=== PATIENT | female | born 1990 | race African-American/Black ===

== ENCOUNTER 2021-01-05 17:41 | Emergency (ER) | payer OTHER ==
[~2021-01-05] VITALS: Ht 175.3 cm; Wt 192.0 kg
[2021-01-05 18:59] LABS: BASO % 0.7 % (0.0-1.0); EOS # 0.1 10^3/uL (0.0-0.5); EOS % 1.1 % (0.0-3.0); HEMATOCRIT 36.8 % (36.0-47.0); LYMPH # 2.2 10^3/uL (1.5-5.0); LYMPH % 47.2 % (24.0-44.0); MEAN CORPUSCULAR HGB CONC 32.6 g/dl (32.0-36.5); MEAN CORPUSCULAR VOLUME 82.9 fl (80.0-96.0); MONO # 0.4 10^3/uL (0.0-0.8); MONO % 8.9 % (0.0-5.0); NEUTROPHILS # 1.9 10^3/uL (1.5-8.5); NEUTROPHILS % 41.7 % (36.0-66.0); PLATELET COUNT, AUTOMATED 281 10^3/uL (150-450); RED BLOOD COUNT 4.44 10^6/uL (4.00-5.40); WHITE BLOOD COUNT 4.6 10^3/uL (4.0-10.0)
[2021-01-05] MEDS ORDERED: DICYCLOMINE 10 MG CAP PO ONE (19:15)
[2021-01-05] MEDS ORDERED: ONDANSETRON 4MG/2ML VIAL IV ONE (19:15)
[2021-01-05] MEDS ORDERED: ISOVUE-370 76% 100ML VIAL As Ordered ONE (19:25)
[2021-01-05 19:27] LABS: ALBUMIN 3.8 GM/DL (3.2-5.2); ALT/SGPT 20 U/L (12-78); BILIRUBIN,DIRECT < 0.1 MG/DL (0.0-0.2); BILIRUBIN,TOTAL 0.1 MG/DL (0.2-1.0); LIPASE 94 U/L (73-393); TOTAL PROTEIN 8.1 GM/DL (6.4-8.2)
--- NOTE | 2021-01-05 20:37 | REPVR ---
PROCEDURE INFORMATION: Exam: CT Abdomen And Pelvis With Contrast Exam date and time: 01/05/2021 7:53 PM Age: 30 years old Clinical indication: Abdominal pain; Generalized; Additional info: Recent sbo, abd pain at suture site constant TECHNIQUE: Imaging protocol: Computed tomography of the abdomen and pelvis with contrast. Radiation optimization: All CT scans at this facility use at least one of these dose optimization techniques: automated exposure control; mA and/or kV adjustment per patient size (includes targeted exams where dose is matched to clinical indication); or iterative reconstruction. Contrast material: ISOVUE 370; Contrast volume: 100 ml; Contrast route: INTRAVENOUS (IV); COMPARISON: No relevant prior studies available. FINDINGS: Liver: Normal. No mass. Gallbladder and bile ducts: Normal. No calcified stones. No ductal dilation. Pancreas: Normal. No ductal dilation. Spleen: Normal. No splenomegaly. Adrenal glands: Normal. No mass. Kidneys and ureters: Normal. No hydronephrosis. Stomach and bowel: Postoperative changes are noted in the mid small bowel. The small bowel suture line appears intact. No bowel obstruction. Colon is unremarkable. Appendix: No evidence of appendicitis. Intraperitoneal space: No pneumoperitoneum. Vasculature: Unremarkable. No abdominal aortic aneurysm. Lymph nodes: Unremarkable. No enlarged lymph nodes. Urinary bladder: Unremarkable as visualized. Reproductive: 3.1 cm cyst in the left ovary. Multiple cysts in the right ovary which appears mildly enlarged. Possible small left hydrosalpinx. No abscess or fluid collections. Bones/joints: Unremarkable. No acute fracture. Soft tissues: Anterior abdominal wall suture site is unremarkable. IMPRESSION: 1. No bowel obstruction or inflammatory process in the GI tract. 2. Small cysts in the ovaries. Possible small left hydrosalpinx. Consider follow-up pelvic ultrasound. Electronically signed by: Garth Summers On 01/05/2021 20:37:13 PM
[2021-01-05] MEDS ORDERED: KETOROLAC 30 MG/ML 1ML VIAL IV ONE (21:30)
[2021-01-05 21:41] VITALS: BP 131/69
--- NOTE | 2021-01-06 11:49 | ED PDOC ---
Post-Departure Follow-Up ft drum fp and ft um ob faxed formal report of ct abd/p for fu Jacky Stark MD Jan 06, 2021 11:49
== END 2021-01-05 21:42 | disposition home or self-care (01) ==
LOC: M ED 17:41
DX: R10.84 Generalized abdominal pain (principal); R11.0 Nausea
CPT/HCPCS: 74177; 80047; 80076; 81001; 83690; 84702; 85025; 96374; 96375; 99284; J1885; J2405; Q9967

== ENCOUNTER → 2021-02-25 | Outpatient (CLI) | payer OTHER ==
[~2021-02-25] MED LIST: GLUCAGON INJ 1MG VIAL As Ordered ONE; ISOVUE-370 76% 100ML VIAL As Ordered ONE; VoLumen 0.1% SUSPENSION 450ML BOTTLE As Ordered ONE
--- NOTE | 2021-02-26 05:31 | REP ---
INDICATION: EPIGASTRIC PAIN COMPARISON: 01/05/2021 TECHNIQUE: Axial contrast-enhanced images from the lung bases to the pubic symphysis with images obtained in arterial and portal venous phases of enhancement. Coronal and sagittal reformations and MIP images were obtained. This CT examination was performed using the following dose reduction techniques: Automated exposure control, adjustment of mA and/or kv according to the patient's size, and use of iterative reconstruction technique. FINDINGS: Evaluation of the enteric system is somewhat limited due to significant residual fecal stasis as well as lack of low-density oral contrast material (as per protocol). There is evidence for prior anastomosis involving the small bowel in the right mid abdomen. There is no evidence for bowel obstruction or acute inflammatory process. Scattered sigmoid diverticula are identified. No obvious small bowel or colonic wall thickening, inflammatory stranding, areas of stenosis/stricture or obvious abnormality are otherwise noted. Normal terminal ileum, cecum and appendix identified in the right lower quadrant. Liver, spleen, pancreas, gallbladder, bilateral adrenal glands and kidneys are normal. Pelvis demonstrates normal bladder and age-appropriate uterus/adnexa. No ascites. No free air. No adenopathy. Abdominal aorta and vasculature are normal. Lung bases are clear. IMPRESSION: 1. Limited evaluation of the enteric system due to fecal stasis, lack of low-density oral contrast material and poor preparation. No obvious enteric abnormality noted. Prior small bowel anastomosis noted. 2. No acute abdominopelvic pathology appreciated. <Electronically signed by Avinash Woo > 02/26/21 [id number]
== END ==
LOC: M RAD 11:05
PROVIDERS: ATTEND Preventive Medicine Undersea and Hyperbaric Medicine
DX: R10.13 Epigastric pain (principal)
CPT/HCPCS: 74177; J1610; Q9967

== ENCOUNTER 2021-03-18 07:26 | Emergency (ER) | payer OTHER ==
[~2021-03-18] VITALS: Ht 175.3 cm; Wt 98.9 kg
[2021-03-18] MEDS ORDERED: MIRA3350 PO (07:32)
[2021-03-18] MEDS ORDERED: MAGN1.743 PO (07:32)
[2021-03-18] MEDS ORDERED: DOCU100C16 PO (07:32)
[2021-03-18] MEDS ORDERED: ONDA4TAB6 PO (07:32)
[2021-03-18] MEDS: methylPREDNISolone 125MG 2ML VIAL IV ONE (07:55)
[2021-03-18] MEDS: NS 1,000 ML IV ONE (07:55)
[2021-03-18] MEDS: diphenhydrAMINE 50MG/ML VIAL (J1200) IV ONE (07:55)
[2021-03-18] MEDS: FAMOTIDINE INJ 20MG/2ML VIAL (S0028 PER 1) IVP ONE (08:13)
[2021-03-18 08:24] LABS: BASO % 0.9 % (0.0-1.0); EOS # 0.1 10^3/uL (0.0-0.5); EOS % 1.5 % (0.0-3.0); HEMATOCRIT 35.9 % (36.0-47.0); HEMOGLOBIN 11.8 g/dl (12.0-15.5); LYMPH # 1.8 10^3/uL (1.5-5.0); LYMPH % 39.3 % (24.0-44.0); MEAN CORPUSCULAR HEMOGLOBIN 26.5 pg (27.0-33.0); MEAN CORPUSCULAR HGB CONC 32.9 g/dl (32.0-36.5); MEAN CORPUSCULAR VOLUME 80.7 fl (80.0-96.0); MONO # 0.4 10^3/uL (0.0-0.8); MONO % 9.7 % (2.0-8.0); NEUTROPHILS # 2.2 10^3/uL (1.5-8.5); NEUTROPHILS % 48.4 % (36.0-66.0); PLATELET COUNT, AUTOMATED 309 10^3/uL (150-450); RED BLOOD COUNT 4.45 10^6/uL (4.00-5.40); WHITE BLOOD COUNT 4.6 10^3/uL (4.0-10.0)
[2021-03-18 08:46] LABS: ERYTHROCYTE SEDIMENTATION RATE 20 mm/hr (0-20)
[2021-03-18 08:54] LABS: ALBUMIN 3.1 GM/DL (3.2-5.2); ALT/SGPT 20 U/L (12-78); BILIRUBIN,DIRECT < 0.1 MG/DL (0.0-0.2); BILIRUBIN,TOTAL 0.2 MG/DL (0.2-1.0); BLOOD UREA NITROGEN 11 MG/DL (7-18); C REACTIVE PROTEIN QUANTITATIV 0.91 MG/DL (0.00-0.30); CALCIUM LEVEL 9.1 MG/DL (8.5-10.1); CARBON DIOXIDE LEVEL 27 MEQ/L (21-32); CHLORIDE LEVEL 107 MEQ/L (98-107); COMPLEMENT C4 30 MG/DL (10-40); CREATININE FOR GFR 1.05 MG/DL (0.55-1.30); GLOMERULAR FILTRATION RATE > 60.0 (>60); GLUCOSE, FASTING 97 MG/DL (70-100); POTASSIUM SERUM 4.1 MEQ/L (3.5-5.1); SODIUM LEVEL 138 MEQ/L (136-145); TOTAL PROTEIN 7.4 GM/DL (6.4-8.2)
[2021-03-18 11:21] VITALS: BP 130/81
[2021-03-18] MEDS ORDERED: EPIP0.3I2 IM (11:21)
[2021-03-18] MEDS ORDERED: PRED20TA PO (11:21)
[2021-03-18] MEDS ORDERED: BENA25CA4 PO (11:23)
[2021-03-20 13:31] LABS: TRYPTASE 5.5 ug/L (2.2-13.2)
== END 2021-03-18 11:48 | disposition home or self-care (01) ==
LOC: M ED 07:26
DX: T78.3XXA Angioneurotic edema, initial encounter (principal); Z79.899 Other long term (current) drug therapy
CPT/HCPCS: 80048; 80076; 83519; 85025; 85280; 85652; 86140; 86160; 86161; 96374; 96375; 99284; J1200; J2930

== ENCOUNTER 2021-05-18 11:16 | Emergency (ER) | payer OTHER ==
[~2021-05-18] VITALS: Ht 180.3 cm; Wt 101.9 kg
[~2021-05-18 11:16] MED LIST changes: +BENA25CA4 PO; +DOCU100C16 PO; +EPIP0.3I2 IM; -GLUCAGON INJ 1MG VIAL As Ordered ONE; -ISOVUE-370 76% 100ML VIAL As Ordered ONE; +MAGN1.743 PO; +MIRA3350 PO; +ONDA4TAB6 PO; +PRED20TA PO; -VoLumen 0.1% SUSPENSION 450ML BOTTLE As Ordered ONE; +ZOLM5TAB20 PO
[2021-05-18 14:00] LABS: APPEARANCE, URINE HAZY (CLEAR); BACTERIA, URINE AUTO 1+ (NEGATIVE); BILIRUBIN, URINE AUTO NEGATIVE (NEGATIVE); BLOOD, URINE BLOOD 3+ (NEGATIVE); COLOR, URINE YELLOW (YELLOW); GLUCOSE, URINE (UA) AUTO 1+ mg/dL (NEGATIVE); KETONE, URINE AUTO NEGATIVE (NEGATIVE); LEUKOCYTE ESTERASE, URINE AUTO NEGATIVE (NEGATIVE); MUCUS, URINE SMALL (NEGATIVE); NITRITE, URINE AUTO NEGATIVE (NEGATIVE); PROTEIN, URINE AUTO 2+ mg/dL (NEGATIVE); RBC, URINE AUTO 4 /HPF (0-3); SPECIFIC GRAVITY URINE AUTO 1.017 (1.002-1.035); SQUAMOUS EPITHELIAL CELL UR AU 3 /HPF (0-6); UROBILINOGEN, URINE AUTO 0.2 mg/dL (0.0-2.0); WBC, URINE AUTO 8 /HPF (0-3)
[2021-05-18 14:05] LABS: BASO # 0.1 10^3/uL (0.0-0.2); BASO % 0.9 % (0.0-1.0); EOS # 0.1 10^3/uL (0.0-0.5); EOS % 0.9 % (0.0-3.0); HEMATOCRIT 40.3 % (36.0-47.0); HEMOGLOBIN 12.9 g/dl (12.0-15.5); LYMPH % 37.3 % (24.0-44.0); MEAN CORPUSCULAR HEMOGLOBIN 25.8 pg (27.0-33.0); MEAN CORPUSCULAR VOLUME 80.6 fl (80.0-96.0); MONO # 0.5 10^3/uL (0.0-0.8); MONO % 9.1 % (2.0-8.0); NEUTROPHILS # 2.8 10^3/uL (1.5-8.5); NEUTROPHILS % 51.4 % (36.0-66.0); PLATELET COUNT, AUTOMATED 357 10^3/uL (150-450); WHITE BLOOD COUNT 5.4 10^3/uL (4.0-10.0)
[2021-05-18 14:46] LABS: BLOOD UREA NITROGEN 10 MG/DL (7-18); CALCIUM LEVEL 9.6 MG/DL (8.5-10.1); CARBON DIOXIDE LEVEL 24 MEQ/L (21-32); CHLORIDE LEVEL 107 MEQ/L (98-107); GLOMERULAR FILTRATION RATE > 60.0 (>60); GLUCOSE, FASTING 87 MG/DL (70-100); POTASSIUM SERUM 4.2 MEQ/L (3.5-5.1); SODIUM LEVEL 139 MEQ/L (136-145)
[2021-05-18 15:46] LABS: HCG, SERUM QUANTITATIVE < 1.0 MIU/ML
[2021-05-18] MEDS ORDERED: ACETAMINOPHEN 325 MG TAB PO ONE (16:00)
--- NOTE | 2021-05-18 16:35 | REP ---
INDICATION: bleeding. COMPARISON: None. TECHNIQUE: Transabdominal and transvaginal scanning or performed. FINDINGS: Uterine dimensions are normal at 6.9 x 3.5 x 4.5 cm. The uterus is empty. No gestational sac, embryonic pole or yolk sac is visible. No free fluid is noted. No adnexal pathology is appreciated. The right ovary measures 2.8 x 2.5 x 2.8 cm. It is Doppler flow is normal resistive index 0.45. The left ovary measures 2.4 x 2.1 x 2.4 cm. Normal Doppler flow is seen in the left ovary as well, resistive index 0.49. IMPRESSION: No morphologic abnormality. Normal-sized empty uterus. No cul-de-sac or adnexal pathology. Nonspecific sonographic findings in early . Clinical and possibly sonographic follow-up is recommended. <Electronically signed by Kai Loya > 05/18/21 [id number]
[2021-05-18] MEDS ORDERED: RHOGAM 300 MCG (1500 IU) INJ (J2790) IM ONE (17:45)
[2021-05-18 18:49] VITALS: BP 165/119
== END 2021-05-18 18:51 | disposition home or self-care (01) ==
LOC: M ED 11:16
DX: Z29.13 Encounter for prophylactic Rho(D) immune globulin (principal); N93.9 Abnormal uterine and vaginal bleeding, unspecified; R10.2 Pelvic and perineal pain
CPT/HCPCS: 36430; 76801; 76817; 80048; 81001; 84702; 85025; 86850; 86900; 86901; 87086; 87210; 93976; 96372; 99284; J2790

== ENCOUNTER → 2021-08-18 | Outpatient (REF) ==
--- NOTE | 2021-08-18 15:42 | REP ---
INDICATION: INJURY/SOB. COMPARISON: None. TECHNIQUE: AP and lateral FINDINGS: Three views of the thoracic spine were obtained. The disc spaces are symmetric and relatively well maintained. There is no acute fracture or destructive osseous lesion. IMPRESSION: Within normal limits <Electronically signed by Montez Johnson > 08/18/21 1535
--- NOTE | 2021-08-18 15:42 | REP ---
INDICATION: INJURY/SOB. COMPARISON: None. TECHNIQUE: AP and lateral FINDINGS: No acute fracture or destructive osseous lesion. IMPRESSION: Within normal limits <Electronically signed by Montez Johnson > 08/18/21 [id number]
--- NOTE | 2021-08-18 15:44 | REP ---
INDICATION: INJURY/SOB. COMPARISON: None TECHNIQUE: Three views FINDINGS: The AP view appears to have been obtained in the LPO projection. Without exception examination is unremarkable. Vertebral body height and alignment is within normal limits. The disc spaces are symmetric and well maintained throughout. IMPRESSION: As above <Electronically signed by Montez Johnson > 08/18/21 1605
--- NOTE | 2021-08-18 15:50 | REP ---
INDICATION: INJURY/SOB COMPARISON: None. TECHNIQUE: PA/Lateral FINDINGS: Lungs: Clear, no infiltrate. Heart: Normal in size. Mediastinum: Mediastinal silhouette unremarkable. Pleural angles: Unremarkable.. Bones and soft tissues: Unremarkable. IMPRESSION: No acute pulmonary disease. <Electronically signed by Alek Oliva > 08/18/21 [id number]
== END ==
LOC: M PLAIMG 14:56
PROVIDERS: ATTEND Internal Medicine
DX: R06.02 Shortness of breath (principal); T14.90XA Injury, unspecified, initial encounter

== ENCOUNTER → 2021-09-09 | Outpatient (CLI) | payer OTHER ==
[~2021-09-09] MED LIST changes: +ISOVUE-370 76% 100ML VIAL As Ordered ONE; +SILVER NITRATE APPLICATOR As Ordered ONE
--- NOTE | 2021-09-09 18:23 | REP ---
INDICATION: INFERTILITY. COMPARISON: None. TECHNIQUE: The endometrium was cannulated and contrast was injected by the attending sales coordinator Butch Welch DC. Fluoroscopic spot films were acquired by YAZ Issa, under the direct supervision of Dr. Oliva. Images reviewed prior to dictation with Dr. Oliva. FINDINGS: Fluoroscopy spot radiographs document filling of a normal endometrial cavity. There is probable right hydrosalpinx. There is probable spillage on the left side. IMPRESSION: There is probable spillage on the left side. There is a probable right hydrosalpinx. 0.9 minutes of fluoroscopy time was utilized for this procedure. Some fluoroscopic images are performed with last image hold technology. These images require no additional radiation. <Electronically signed by Carol Richards > 09/09/21 1638 <Electronically signed by Alek Oliva > 09/09/21 1815
== END ==
LOC: M RADPRO 11:18
PROVIDERS: ATTEND Obstetrics & Gynecology
DX: N97.9 Female infertility, unspecified (principal)
CPT/HCPCS: 58340; 74740; Q9967

== ENCOUNTER 2021-11-10 06:09 | Observation (INO) | payer OTHER ==
[~2021-11-10] VITALS: Ht 175.3 cm; Wt 110.3 kg
[2021-11-10] VITALS (7 sets, daily range): BP systolic 115–128; BP diastolic 78–82
[~2021-11-10 06:09] MED LIST changes: +CYCL5TAB PO; -ISOVUE-370 76% 100ML VIAL As Ordered ONE; +LIDOCAINE 1% MDV 20ML VIAL SQ PRN; +LR 1,000 ML IV ONE; +METF-414 PO; +NOXI1TAB PO; -SILVER NITRATE APPLICATOR As Ordered ONE; +ceFAZolin SOD 2 GM in IV 1 EA IV ONE
[2021-11-10] MEDS ORDERED: GENTAMICIN SULF 80MG/2ML VIAL As Ordered ONE (07:11)
[2021-11-10] MEDS ORDERED: BUPIVACAINE LIPOSOME/PF 1.3% 20ML VIAL (13.3MG/ML)(EXPAREL)(C9290 PER1MG) As Ordered ONE (07:11)
[2021-11-10] MEDS ORDERED: LIDOCAINE 2% 100MG/5ML SDV (FOR ANES.) As Ordered ONE (07:25)
[2021-11-10] MEDS ORDERED: ROCURONIUM BROMIDE 50 MG/5 ML VIAL As Ordered ONE (07:25)
[2021-11-10] MEDS ORDERED: dexameTHASONE 4 MG/ML 1ML VIAL (J1100 PER 1MG) As Ordered ONE (07:25)
[2021-11-10] MEDS ORDERED: ONDANSETRON 4MG/2ML VIAL As Ordered ONE (07:25)
[2021-11-10] MEDS ORDERED: propofoL 200 MG/20 ML VIAL As Ordered ONE ×2 (07:25→08:09)
[2021-11-10] MEDS ORDERED: MIDAZOLAM INJ 2MG/2ML VIAL (J2250 PER 1MG) As Ordered ONE (07:26)
[2021-11-10] MEDS ORDERED: fentaNYL 250 MCG/5 ML INJECTION (J3010) As Ordered ONE (07:26)
[2021-11-10] MEDS ORDERED: HEPARIN SOD (PORCINE) 5000UNITS/ML 1ML VIAL/SYRINGE As Ordered ONE (07:48)
[2021-11-10] MEDS ORDERED: ACETAMINOPHEN 1000MG 100ML IV BTL (OFIRMEV) (J0131 PER 10MG) As Ordered ONE (08:11)
[2021-11-10] MEDS ORDERED: HYDROmorphone HCL 2MG/ML 1ML VIAL As Ordered ONE (08:12)
[2021-11-10] MEDS ORDERED: METOCLOPRAMIDE INJ 10MG/2ML VIAL (J2765 PER 1) As Ordered ONE (08:13)
[2021-11-10] MEDS ORDERED: ESMOLOL INJ 100MG/10ML VIAL As Ordered ONE (08:15)
[2021-11-10] MEDS ORDERED: LACRILUBE (AKWA TEARS) OPHTH OINT 3.5 GM As Ordered ONE (08:45)
[2021-11-10] MEDS ORDERED: LABETALOL 100MG/20ML VIAL As Ordered ONE (09:05)
[2021-11-10] MEDS ORDERED: LR 1,000 ML IV SCH (09:45)
[2021-11-10] MEDS ORDERED: oxyCODONE 5MG TAB PO PRN (09:45)
[2021-11-10] MEDS ORDERED: ACETAMINOPHEN TAB 650MG DOSE (2X325MG) PO PRN (09:45)
[2021-11-10] MEDS ORDERED: PERCOCET 5MG/325MG TAB PO PRN (09:45)
[2021-11-10] MEDS ORDERED: KETOROLAC TROMETHAMINE 10 MG TAB PO PRN (09:45)
[2021-11-10] MEDS ORDERED: HYDROMORPHONE HCL 0.5 MG/ 0.5 ML SYRINGE (J1170 PER 1) IV PRN (09:45)
[2021-11-10] MEDS ORDERED: fentaNYL 100 MCG/2 ML INJECTION (J3010) IV PRN (09:45)
[2021-11-10] MEDS ORDERED: ONDANSETRON 4MG/2ML VIAL IV PRN ×2 (09:45)
[2021-11-10] MEDS: LR 1,000 ML IV SCH ×2 (12:06→23:05)
[2021-11-10] MEDS: ceFAZolin SOD 1 GM in D5W MINI-BAG PLUS 50 ML IV SCH ×3 (14:54→23:23)
[2021-11-11 02:00] VITALS: BP 131/70
[2021-11-11 06:00] VITALS: BP 118/78
[2021-11-11] MEDS: ceFAZolin SOD 1 GM in D5W MINI-BAG PLUS 50 ML IV SCH (08:00)
[2021-11-11] MEDS ORDERED: KETO10TAB PO (09:14)
== END 2021-11-11 12:20 | disposition home or self-care (01) ==
LOC: M SDC 06:09 → M MS5PR 06:10 → M SDC 11-11 12:20
PROVIDERS: ADMIT Plastic Surgery Surgery of the Hand; ATTEND Plastic Surgery Surgery of the Hand
DX: L90.5 Scar conditions and fibrosis of skin (principal); E11.9 Type 2 diabetes mellitus without complications; Z79.84 Long term (current) use of oral hypoglycemic drugs; Z79.899 Other long term (current) drug therapy
CPT/HCPCS: 13101; 13102; 81025; 88302; C9290; J0131; J0690; J1100; J1170; J1580; J1644; J2250; J2405; J2765; J3010